=== PATIENT | female | born 1940 | race Caucasian/White ===

== ENCOUNTER 2016-09-21 19:28 | Inpatient (IN) | payer MEDICARE, OTHER ==
[~2016-09-21] VITALS: Ht 154.9 cm; Wt 56.3 kg
[2016-09-21] MEDS ORDERED: DUONEB INH ONE ×2 (19:58)
[2016-09-21] MEDS ORDERED: BISACODYL EC 5 MG TAB PO PRN (22:50)
[2016-09-21] MEDS ORDERED: ALU/MAG/SIM 30 ML UDC PO PRN (22:50)
[2016-09-21] MEDS ORDERED: BISACODYL 10 MG SUPP RECTAL PRN (22:50)
[2016-09-21] MEDS ORDERED: ONDANSETRON 4 MG VIAL IV PRN (22:50)
[2016-09-21] MEDS ORDERED: SALINE FLUSH 10 ML FLUSH PRN (22:50)
[2016-09-21] MEDS ORDERED: ACETAMINOPHEN 325 MG TAB PO PRN (22:50)
[2016-09-21] MEDS ORDERED: MAG HYDROX 30 ML UDC PO PRN (22:50)
[2016-09-21] MEDS ORDERED: TEMAZEPAM 7.5 MG CAP PO PRN (22:50)
[2016-09-21] MEDS: NEB-BROVANA 15 MCG/2 ML INH SCH (22:55)
[2016-09-21] MEDS ORDERED: NEB-ALBUTEROL 2.5 MG/3 ML INH PRN (22:55)
[2016-09-21] MEDS ORDERED: BENZONATATE 100 MG CAP PO PRN (22:55)
[2016-09-21 23:00] VITALS: BP_SYST 121; BP_SYST 125; RESP 22; TEMP 98.3
[2016-09-22] VITALS (7 sets, daily range): BP systolic 111–166; RESP 18–22; TEMP 97.4–98.7; Ht 154.9 cm; Wt 56.3 kg
[2016-09-22] MEDS: METHYLPRED SOD SUCC 125 MG/2 ML VIAL IV SCH ×3 (01:44→15:38)
[2016-09-22] MEDS: DOXYCYCLINE 100 MG in SODIUM CHLORIDE 0.9% 250 ML IV SCH ×3 (01:45→20:02)
[2016-09-22] MEDS: ALPRAZOLAM 0.25 MG TAB PO PRN ×3 (01:48→20:06)
[2016-09-22] MEDS: DUONEB INH SCH ×4 (02:42→19:42)
[2016-09-22] MEDS: SODIUM CHLORIDE 0.9% FLUSH BAG 500 ML IV SCH (05:59)
[2016-09-22] MEDS: PANTOPRAZOLE 40 MG TAB PO SCH (06:00)
[2016-09-22] MEDS: NEB-BROVANA 15 MCG/2 ML INH SCH ×2 (06:44→19:42)
[2016-09-22] MEDS: NEB-BUDESONIDE 0.5 MG INH SCH ×2 (06:45→19:42)
[2016-09-22] MEDS ORDERED: CEFTRIAXONE 1 GM in SODIUM CHLORIDE 0.9% 50 ML IV SCH (09:00)
[2016-09-22] MEDS ORDERED: CLOPIDOGREL 75 MG TAB PO SCH (09:00)
[2016-09-22] MEDS: ENOXAPARIN 40 MG/0.4 ML SYR SUBQ SCH ×2 (09:30→09:50)
[2016-09-22] MEDS: SALINE FLUSH 10 ML FLUSH SCH ×2 (09:48→20:02)
[2016-09-22] MEDS: ROFLUMILAST 500 MCG TAB PO SCH (09:49)
[2016-09-22] MEDS: Furosemide 20 MG TAB PO SCH (09:49)
[2016-09-22] MEDS: GUAIFENESIN ER 600 MG TABCR PO SCH ×2 (09:49→20:02)
[2016-09-22] MEDS: PRAVASTATIN 20 MG TAB PO SCH (20:02)
[2016-09-23] MEDS: DUONEB INH SCH ×4 (00:01→18:38)
[2016-09-23] MEDS: METHYLPRED SOD SUCC 125 MG/2 ML VIAL IV SCH ×3 (00:13→16:57)
[2016-09-23 03:19] VITALS: BP_SYST 135; RESP 18; TEMP 98.6
[2016-09-23] MEDS: PANTOPRAZOLE 40 MG TAB PO SCH (06:09)
[2016-09-23] MEDS: SODIUM CHLORIDE 0.9% FLUSH BAG 500 ML IV SCH (06:10)
[2016-09-23] MEDS: NEB-BUDESONIDE 0.5 MG INH SCH ×2 (06:41→18:38)
[2016-09-23] MEDS: NEB-BROVANA 15 MCG/2 ML INH SCH ×2 (06:41→18:38)
[2016-09-23 07:20] VITALS: BP_SYST 128; RESP 18; TEMP 98.8
[2016-09-23] MEDS: Furosemide 20 MG TAB PO SCH (08:21)
[2016-09-23] MEDS: ROFLUMILAST 500 MCG TAB PO SCH (08:21)
[2016-09-23] MEDS: GUAIFENESIN ER 600 MG TABCR PO SCH ×2 (08:21→21:19)
[2016-09-23] MEDS: CLOPIDOGREL 75 MG TAB PO SCH (08:21)
[2016-09-23] MEDS: ENOXAPARIN 40 MG/0.4 ML SYR SUBQ SCH (08:22)
[2016-09-23] MEDS: SALINE FLUSH 10 ML FLUSH SCH ×2 (08:22→21:14)
[2016-09-23] MEDS: DOXYCYCLINE 100 MG in SODIUM CHLORIDE 0.9% 250 ML IV SCH (08:23)
[2016-09-23] MEDS: ALPRAZOLAM 0.25 MG TAB PO PRN ×2 (08:31→16:57)
[2016-09-23] MEDS: THEOPHYLLINE SR 300 MG CAP PO SCH (11:17)
[2016-09-23 11:25] VITALS: BP_SYST 138; RESP 18; TEMP 98.1
[2016-09-23] MEDS ORDERED: Furosemide 40 MG/4 ML VIAL IV ONE (12:05)
[2016-09-23 15:10] VITALS: BP_SYST 133; RESP 18; TEMP 99
[2016-09-23 19:24] VITALS: BP_SYST 120; RESP 18; TEMP 98.8
[2016-09-23] MEDS ORDERED: MISSING DOSE XX ONE ×2 (20:50→22:05)
[2016-09-23] MEDS: DOXYCYCLINE 100 MG TAB PO SCH (21:14)
[2016-09-23] MEDS: PRAVASTATIN 20 MG TAB PO SCH (21:14)
[2016-09-23 23:17] VITALS: BP_SYST 112; RESP 18; TEMP 98.3
[2016-09-24] MEDS: DUONEB INH SCH ×3 (00:30→11:31)
[2016-09-24] MEDS: METHYLPRED SOD SUCC 125 MG/2 ML VIAL IV SCH ×2 (00:42→09:28)
[2016-09-24] MEDS: ALPRAZOLAM 0.25 MG TAB PO PRN ×2 (00:46→09:49)
[2016-09-24 04:12] VITALS: BP_SYST 133; RESP 18; TEMP 97.8
[2016-09-24] MEDS: SODIUM CHLORIDE 0.9% FLUSH BAG 500 ML IV SCH (05:09)
[2016-09-24] MEDS: PANTOPRAZOLE 40 MG TAB PO SCH (06:24)
[2016-09-24] MEDS: NEB-BROVANA 15 MCG/2 ML INH SCH (07:15)
[2016-09-24] MEDS: NEB-BUDESONIDE 0.5 MG INH SCH (07:16)
[2016-09-24 08:14] VITALS: BP_SYST 135; RESP 18; TEMP 97.3
[2016-09-24] MEDS: ENOXAPARIN 40 MG/0.4 ML SYR SUBQ SCH (09:00)
[2016-09-24] MEDS: GUAIFENESIN ER 600 MG TABCR PO SCH (09:28)
[2016-09-24] MEDS: CLOPIDOGREL 75 MG TAB PO SCH (09:28)
[2016-09-24] MEDS: THEOPHYLLINE SR 300 MG CAP PO SCH (09:28)
[2016-09-24] MEDS: DOXYCYCLINE 100 MG TAB PO SCH (09:28)
[2016-09-24] MEDS: SALINE FLUSH 10 ML FLUSH SCH (09:28)
[2016-09-24] MEDS: ROFLUMILAST 500 MCG TAB PO SCH (09:29)
[2016-09-24] MEDS: Furosemide 20 MG TAB PO SCH (09:29)
[2016-09-24 11:03] VITALS: BP_SYST 116; RESP 18; TEMP 98.7
[2016-09-24 15:33] VITALS: BP_SYST 116; RESP 18; TEMP 98.7
[2016-09-24 16:37] VITALS: BP_SYST 133; RESP 18; TEMP 98.4
== END 2016-09-24 17:13 | disposition home health service (06) | DRG 189 ==
LOC: ENRESERVTM → ENRESERVDT → ER 19:28 → EMR 21:48 → ENPENDDIS 21:48 → 4THE 09-22 00:08
PROVIDERS: ADMIT Internal Medicine; ATTEND Internal Medicine
CPT/HCPCS: 36600; 71010; 93005; 94640; 94799; 99223

== ENCOUNTER 2016-10-28 19:38 | Inpatient (IN) | payer MEDICARE, OTHER ==
[~2016-10-28] VITALS: Ht 149.9 cm; Wt 60.3 kg
[2016-10-28 20:30] VITALS: BP_SYST 108; TEMP 98.2
[2016-10-28] MEDS ORDERED: PHARMACY TO DOSE VANCOMYCIN IV SCH (22:00)
[2016-10-28] MEDS ORDERED: SALINE FLUSH 10 ML FLUSH PRN (22:00)
[2016-10-28] MEDS ORDERED: SODIUM CHLORIDE 0.9% IV SCH (22:00)
[2016-10-28] MEDS ORDERED: VANCOMYCIN IV SCH (22:00)
[2016-10-28] MEDS ORDERED: VANCOMYCIN 1,250 MG in SODIUM CHLORIDE 0.9% 250 ML IV ONE (22:15)
[2016-10-28] MEDS ORDERED: **NOTE TO NURSE XX SCH (22:17)
[2016-10-28 23:17] VITALS: RESP 22; Ht 149.9 cm; Wt 60.3 kg
[2016-10-28 23:35] VITALS: BP_SYST 100; RESP 18; TEMP 98.6
[2016-10-29] MEDS: DOXYCYCLINE 100 MG in SODIUM CHLORIDE 0.9% 250 ML IV SCH ×3 (01:06→22:36)
[2016-10-29] MEDS: SODIUM CHLORIDE 0.9% FLUSH BAG 500 ML IV SCH (01:16)
[2016-10-29] MEDS ORDERED: ALPRAZOLAM 0.25 MG TAB PO ONE (01:25)
[2016-10-29 05:18] VITALS: BP_SYST 106; RESP 18; TEMP 98.3
[2016-10-29 07:48] VITALS: BP_SYST 126; RESP 20; TEMP 98.4
[2016-10-29] MEDS ORDERED: MISSING DOSE XX ONE ×2 (10:15→21:50)
[2016-10-29 11:15] VITALS: BP_SYST 138; RESP 20; TEMP 98.4
[2016-10-29] MEDS: SALINE FLUSH 10 ML FLUSH SCH ×2 (11:24→21:55)
[2016-10-29] MEDS: VANCOMYCIN 750 MG in SODIUM CHLORIDE 0.9% 250 ML IV SCH (14:56)
[2016-10-29 15:47] VITALS: BP_SYST 122; RESP 20; TEMP 97.5
[2016-10-29] MEDS: Hydrocodone/APAP 10/325 MG TAB PO PRN ×2 (16:48→23:34)
[2016-10-29] MEDS: ALPRAZOLAM 1 MG TAB PO PRN (16:48)
[2016-10-29] MEDS: NEB-ALBUTEROL 2.5 MG/3 ML INH SCH (17:28)
[2016-10-29] MEDS: NEB-BROVANA 15 MCG/2 ML INH SCH (17:28)
[2016-10-29] MEDS: NEB-BUDESONIDE 0.5 MG INH SCH (17:29)
[2016-10-29 21:12] VITALS: BP_SYST 105; RESP 20; TEMP 98
[2016-10-29] MEDS: PANTOPRAZOLE 40 MG TAB PO SCH (21:54)
[2016-10-29] MEDS: GABAPENTIN 400 MG CAP PO SCH (21:54)
[2016-10-29] MEDS: PRAVASTATIN 20 MG TAB PO SCH (21:54)
[2016-10-29] MEDS: TRAZODONE 50 MG TAB PO SCH (21:54)
[2016-10-29 23:25] VITALS: BP_SYST 112; RESP 20; TEMP 98
[2016-10-30] MEDS: NEB-ALBUTEROL 2.5 MG/3 ML INH SCH ×5 (00:01→23:48)
[2016-10-30] MEDS: VANCOMYCIN 750 MG in SODIUM CHLORIDE 0.9% 250 ML IV SCH ×2 (00:03→12:59)
[2016-10-30 05:35] VITALS: BP_SYST 113; RESP 20; TEMP 97.5
[2016-10-30] MEDS: Hydrocodone/APAP 10/325 MG TAB PO PRN ×3 (05:42→20:53)
[2016-10-30] MEDS: SODIUM CHLORIDE 0.9% FLUSH BAG 500 ML IV SCH (05:43)
[2016-10-30] MEDS: NEB-BROVANA 15 MCG/2 ML INH SCH ×2 (06:27→18:42)
[2016-10-30] MEDS: NEB-BUDESONIDE 0.5 MG INH SCH ×2 (06:27→18:42)
[2016-10-30] MEDS: MDI-SPIRIVA 5 DOSES INH SCH (06:30)
[2016-10-30] MEDS ORDERED: MISSING DOSE XX ONE (07:35)
[2016-10-30 07:40] VITALS: BP_SYST 100; RESP 16; TEMP 97.2
[2016-10-30] MEDS: ALPRAZOLAM 1 MG TAB PO PRN ×2 (08:04→20:52)
[2016-10-30] MEDS: DOXYCYCLINE 100 MG in SODIUM CHLORIDE 0.9% 250 ML IV SCH ×2 (09:30→20:51)
[2016-10-30] MEDS: ROFLUMILAST 500 MCG TAB PO SCH (09:31)
[2016-10-30] MEDS: PREDNISONE 20 MG TAB PO SCH (09:31)
[2016-10-30] MEDS: PANTOPRAZOLE 40 MG TAB PO SCH ×2 (09:31→20:51)
[2016-10-30] MEDS: CLOPIDOGREL 75 MG TAB PO SCH (09:31)
[2016-10-30] MEDS: SALINE FLUSH 10 ML FLUSH SCH ×2 (09:31→20:51)
[2016-10-30] MEDS: Furosemide 20 MG TAB PO SCH (09:32)
[2016-10-30] MEDS: CITALOPRAM 20 MG TAB PO SCH (09:32)
[2016-10-30 11:05] VITALS: BP_SYST 100; RESP 16; TEMP 97.4
[2016-10-30 16:17] VITALS: BP_SYST 131; RESP 16; TEMP 97.8
[2016-10-30 20:19] VITALS: BP_SYST 117; RESP 20; TEMP 97.9
[2016-10-30] MEDS: TRAZODONE 50 MG TAB PO SCH (20:51)
[2016-10-30] MEDS: PRAVASTATIN 20 MG TAB PO SCH (20:51)
[2016-10-30] MEDS: GABAPENTIN 400 MG CAP PO SCH (20:51)
[2016-10-30 22:56] VITALS: BP_SYST 141; RESP 20; TEMP 97.7
[2016-10-31] MEDS: VANCOMYCIN 1,000 MG in SODIUM CHLORIDE 0.9% 250 ML IV SCH ×2 (01:33→14:15)
[2016-10-31] MEDS: SODIUM CHLORIDE 0.9% FLUSH BAG 500 ML IV SCH (01:34)
[2016-10-31 03:52] VITALS: BP_SYST 100; RESP 20; TEMP 97.5
[2016-10-31] MEDS: Hydrocodone/APAP 10/325 MG TAB PO PRN ×3 (04:46→16:50)
[2016-10-31] MEDS: NEB-ALBUTEROL 2.5 MG/3 ML INH SCH ×2 (06:54→11:41)
[2016-10-31] MEDS: MDI-SPIRIVA 5 DOSES INH SCH (06:54)
[2016-10-31] MEDS: NEB-BROVANA 15 MCG/2 ML INH SCH (06:54)
[2016-10-31] MEDS: NEB-BUDESONIDE 0.5 MG INH SCH (06:54)
[2016-10-31 07:33] VITALS: BP_SYST 107; RESP 20; TEMP 97.3
[2016-10-31] MEDS: SALINE FLUSH 10 ML FLUSH SCH (08:59)
[2016-10-31] MEDS: DOXYCYCLINE 100 MG in SODIUM CHLORIDE 0.9% 250 ML IV SCH (08:59)
[2016-10-31] MEDS: CITALOPRAM 20 MG TAB PO SCH (09:51)
[2016-10-31] MEDS: ROFLUMILAST 500 MCG TAB PO SCH (09:51)
[2016-10-31] MEDS: Furosemide 20 MG TAB PO SCH (09:53)
[2016-10-31] MEDS: ALPRAZOLAM 1 MG TAB PO PRN (09:53)
[2016-10-31] MEDS: PREDNISONE 20 MG TAB PO SCH (09:53)
[2016-10-31] MEDS: CLOPIDOGREL 75 MG TAB PO SCH (09:54)
[2016-10-31] MEDS: PANTOPRAZOLE 40 MG TAB PO SCH (09:54)
[2016-10-31 11:47] VITALS: BP_SYST 112; RESP 20; TEMP 98.2
[2016-10-31 15:41] VITALS: BP_SYST 113; RESP 20; TEMP 98.2
[2016-10-31 17:35] VITALS: BP_SYST 113; RESP 20; TEMP 98.2
== END 2016-10-31 18:21 | disposition home or self-care (01) | DRG 189 ==
LOC: ENRESERVDT → ENRESERV → ENRESERVTM → 4NT 21:50 → ENPENDDIS 21:50
PROVIDERS: ADMIT Family Medicine; ATTEND Family Medicine
DX: J96.21 Acute and chronic respiratory failure with hypoxia (principal); J18.9 Pneumonia, unspecified organism; I50.42 Chronic combined systolic (congestive) and diastolic (congestive) heart failure; Z99.81 Dependence on supplemental oxygen; J44.0 Chronic obstructive pulmonary disease with (acute) lower respiratory infection; J44.1 Chronic obstructive pulmonary disease with (acute) exacerbation; F17.210 Nicotine dependence, cigarettes, uncomplicated; E78.5 Hyperlipidemia, unspecified; F41.9 Anxiety disorder, unspecified; Z85.41 Personal history of malignant neoplasm of cervix uteri; G47.33 Obstructive sleep apnea (adult) (pediatric); Z79.02 Long term (current) use of antithrombotics/antiplatelets; Z79.51 Long term (current) use of inhaled steroids
CPT/HCPCS: 71250; 80048; 80202; 83605; 85025; 87040; 87071; 87493; 94640; 94799; 99222; 99232